=== PATIENT | female | born 1955 | race Caucasian/White ===

== ENCOUNTER → 2017-08-27 16:15 | Outpatient (CLI) | payer OTHER, SELFPAY ==
[2017-08-27 17:26] LABS: Add Manual Diff / Slide Review NO; Basophils Percent Auto 1.2 % (0-2); Hematocrit 41.4 % (36-46); Hemoglobin 14.2 g/dL (12.0-16.0); Mean Corpuscular HGB Conc 34.4 % (30-36); Mean Corpuscular Hemoglobin 30.3 PG (26-34); Monocytes Percent Auto 8.4 % (3-14); Neutrophils Absolute Auto 3200 /uL (3000-5900); Neutrophils Percent Auto 62.4 % (50-75); Platelet Count 264 X10^3/uL (150-400); Red Cell Distribution Width 13.2 % (11.6-14.8); White Blood Cell Count 5.2 X10^3/uL (4.5-11.0)
[2017-08-27 17:47] LABS: HEMOLYSIS < 15 (0-50); Iron 65 ug/dL (37-170)
[2017-08-27 17:58] LABS: Percent Iron Saturation 19 % (15-50); Total Iron Binding Capacity 339 ug/dL (265-497); Transferrin 285 mg/dL (206-381)
== END ==
PROVIDERS: Family Provider Family Medicine; PCP Family Medicine; Visit Provider Surgery
DX: D64.9 Anemia, unspecified (principal)
CPT/HCPCS: 36415; 83540; 83550; 85025

== ENCOUNTER 2017-09-12 17:19 | Emergency (ER) | payer OTHER, SELFPAY ==
[2017-09-12 17:25] VITALS: BP 182/86; PULSE 82; RESP 14; TEMP 36.4; O2SAT 100; BMI 29.8
--- NOTE | 2017-09-12 17:28 | DI.RAD.S_ITS ---
PROCEDURE: XR CHEST 1V INDICATIONS: chest pain TECHNIQUE: One view of the chest was acquired. COMPARISON: None. FINDINGS: Surgical changes and devices: None. Lungs and pleura: No pleural effusions or pneumothorax. Lungs are clear. Mediastinum: Mediastinal contours appear normal. Heart size is normal. Bones and chest wall: No suspicious bony lesions. Overlying soft tissues appear unremarkable. IMPRESSION: No acute cardiopulmonary pathology. Dictated by: Ousmane Shelton M.D. on 09/12/2017 at 17:41 Approved by: Ousmane Shelton M.D. on 09/12/2017 at 17:42
[2017-09-12 17:43] LABS: Add Manual Diff / Slide Review NO; Eosinophils Percent Auto 1.8 % (2-4); Hematocrit 42.3 % (36-46); Hemoglobin 14.3 g/dL (12.0-16.0); Lymphocytes Percent Auto 23.4 % (25-40); Mean Corpuscular HGB Conc 33.8 % (30-36); Mean Corpuscular Hemoglobin 29.9 PG (26-34); Mean Corpuscular Volume 88.3 fL (80-100); Monocytes Percent Auto 7.8 % (3-14); Neutrophils Absolute Auto 4100 /uL (3000-5900); Platelet Count 276 X10^3/uL (150-400); Red Blood Cell Count 4.79 X10^6/uL (4.0-5.2); Red Cell Distribution Width 12.9 % (11.6-14.8); White Blood Cell Count 6.3 X10^3/uL (4.5-11.0)
[2017-09-12] MEDS: SODIUM CHLORIDE 0.9% 1,000 ML 150 ML IV (17:43)
[2017-09-12] MEDS: ASPIRIN 81 MG TAB 324 MG PO (17:43)
--- NOTE | 2017-09-12 18:00 | ED_ITS ---
HPI - Chest Pain General Chief Complaint: Chest Pain Stated Complaint: EARLIER HAD CP, NAUSEA, DIZZINESS Time Seen by Provider: 09/12/17 17:41 Source: patient Mode of arrival: ambulatory Limitations: no limitations History of Present Illness HPI narrative: Patient states she was at work and had just eaten lunch, when she began to have a pain in her substernal area. Patient states that the pain escalated and that she felt nauseated and faint. She states the pain went on for about 10 min, after which she finally told a co-worker was going on and the prop worker called EMS. Patient states that by the time the medics got there the pain had totally resolved and she was feeling fine. Patient stayed at work for the rest of the afternoon, during which she had no further symptoms and states she feels fine now. However, she states she spoke with her sister, who is a nurse, and her sister told her she should come to the emergency department and get checked out. Patient estimates the pain occurred around 13 30 this afternoon. Patient denies any history of cardiac issues. She has no history of diabetes, hypertension, hyperlipidemia, or any sort of heart problems. She states that her family members have not had any coronary artery disease or strokes. Patient has been tobacco free since the early . complaint: chest pain Onset (ago): hour(s) (4.5) Duration: constant (For10 min, now resolved) Onset: during rest and after eating Pain location: substernal Severity: moderate Quality: tightness and sharp Pain radiation: none Relieving factors: nothing Exacerbating factors: nothing Context: other (No recent illness, recent surgery, immobilization, travel, trauma, new meds, or history of DVT/PE.) Associated symptoms: nausea and other (No diaphoresis, dyspnea, syncope, palpitations, fever, cough, or leg swelling.) Treatments prior to arrival chest pain: none Related Data Home Medications Medication Instructions Recorded Confirmed sennosides [senna] OR Q DAY PRN #0 02/01/17 08/27/17 ferrous gluconate 270 mg (27 mg 270 mg PO DAILY tab 08/27/17 08/27/17 iron) tablet Previous Rx's Medication Instructions Recorded estradiol 0.075 mg/24 hr 0.075 mg TOPICAL SEE INSTRUCTIONS 09/10/17 semiweekly transdermal patch #8 patch Allergies Allergy/AdvReac Type Severity Reaction Status Date / Time naproxen [NAPROXEN] Allergy Unknown Verified 09/12/17 17:25 Review of Systems Review of Systems All systems reviewed & are unremarkable except as noted in HPI and below Constitutional Denies chills, Denies fever(s), Denies lethargy and Denies weakness Eyes Denies change in vision, Denies eye discharge, Denies irritation and Denies loss of vision ENT Ears, Nose, Mouth, and Throat: Denies change in voice, Denies neck pain and Denies sore throat Cardiovascular Reports as per HPI, Reports system reviewed and no additional complaints, except as docu, Reports chest pain, Denies irregular heart rhythm, Denies lightheadedness, Denies palpitations, Denies dyspnea, Denies dyspnea on exertion and Denies orthopnea Respiratory Denies cough, Denies dyspnea, Denies dyspnea on exertion and Denies wheezing Gastrointestinal Gastrointestinal: Denies abdominal pain, Denies change in bowel habits, Denies diarrhea, Reports nausea and Denies vomiting Genitourinary Denies hematuria, Denies flank pain, Denies urinary incontinence and Denies urinary urgency Musculoskeletal Denies neck pain Integumentary/Breasts Denies pruritus, Denies erythema, Denies rash and Denies wounds Neurologic Denies confusion, Denies loss of vision and Denies weakness Psychiatric Denies anxiety, Denies confusion, Denies depression, Denies homicidal ideation and Denies suicidal ideation Endocrine Denies palpitations Hematologic/Lymphatic Denies easy bruising Allergic/Immunologic Denies wheezing [facility] Social History Smoking Status: Never smoker substance use type: does not use Exam Initial Vital Signs Initial Vital Signs: Vital Signs Temperature 97.5 F L 09/12/17 17:25 Pulse Rate 82 09/12/17 17:25 Respiratory Rate 14 09/12/17 17:25 Blood Pressure 182/86 H 09/12/17 17:25 Pulse Oximetry 100 09/12/17 17:25 Const General: cooperative and well developed Nutritional Appearance: well nourished Orientation: alert, awake, oriented x3 and not confused HENWI Head: normocephalic and atraumatic Ears: external ears normal and TM's normal bilaterally Nose: external nose normal and No nasal discharge Face and sinus: sinuses nontender, face symmetric, no sinus tenderness and No dry mucous membranes Mouth: oral mucosae normal and moist mucous membranes Teeth and gingiva: dentition normal Throat: tonsils normal and uvula midline Eyes General: appearance normal, both eyes and all related structures Eyelids: eyelids normal Conjunctivae: conjunctivae normal Sclera: sclerae normal Pupils: PERRL EOM: EOM intact bilaterally Neck Neck: normal visual inspection, trachea midline, No lymphadenopathy, No midline deformity and No JVD Lymphatic: No lymphedema Chest Chest: normal inspection of the chest Resp Effort & Inspection: normal respiratory effort, able to speak in complete sentences, no respiratory distress and no use of accessory muscles Auscultation: clear to auscultation bilaterally, no rales, no rhonchi and no wheezes Cardio Rate: regular rate Rhythm: regular rhythm Heart Sounds: no click, no gallops, no murmurs and no rubs Pulses: normal peripheral pulses GI Inspection: non-distended Palpation: soft, no hepatosplenomegaly, No guarding, No pulsatile mass and No tender Auscultation: normal bowel sounds Back/Spine/Pelvis Back: No CVA tenderness Cervical Spine: cervical ROM normal and No pain with cervical ROM Thoracic/Lumbar Spine: thoracic and lumbar spine normal to inspection Skin General: no rashes or lesions noted, No jaundice and No petechiae Neuro General: alert, oriented x3, gait normal and no focal motor deficits Speech: speech normal Extrem General: full ROM, no clubbing, cyanosis or edema, no pedal edema and no calf tenderness Psych Appearance: well kempt Mental Status: mental status grossly normal Attitude: cooperative Thought Content: normal and suicidality Judgment: judgment good Course Hospital Course: Patient remained stable throughout her stay in the emergency department. Additional Information: Patient's labs and EKG were unremarkable. I felt the patient most likely did not have a cardiac source of her symptoms. However, we have discussed the need for follow-up, as well as the usual indications for return to the emergency department. PROCEDURE: XR CHEST 1V INDICATIONS: chest pain TECHNIQUE: One view of the chest was acquired. COMPARISON: None. FINDINGS: Surgical changes and devices: None. Lungs and pleura: No pleural effusions or pneumothorax. Lungs are clear. Mediastinum: Mediastinal contours appear normal. Heart size is normal. Bones and chest wall: No suspicious bony lesions. Overlying soft tissues appear unremarkable. IMPRESSION: No acute cardiopulmonary pathology. Dictated by: Ousmane Shelton M.D. on 09/12/2017 at 17:41 Approved by: Ousmane Shelton M.D. on 09/12/2017 at 17:42 EKG interpretation as follows: Date and time September 12, 2017 at 5:24 p.m.. Regular ventricular rhythm with a rate of 75 beats per minute KS Interval 155 millisecond QRS duration 72 milliseconds QTC interval 400 millisecond Normal axis No ST or T-wave abnormalities Interpretation: Normal sinus rhythm, normal EKG Orders Ordered: Discontinued Medications Aspirin (Aspirin Chew) 324 mg PO NOW ONE Stop: 09/12/17 17:29 Last Admin: 09/12/17 17:43 Dose: 324 mg Sodium Chloride (Normal Saline 0.9%) 1,000 mls @ 150 mls/hr IV CONT ANDREA Last Admin: 09/12/17 17:43 Dose: 150 mls/hr Vital Signs - 8 hr 09/12/17 17:25 Temperature 97.5 F L Pulse Rate 82 Respiratory Rate 14 Blood Pressure 182/86 H Pulse Oximetry 100 MDM - Chest Pain Differential Diagnosis Likely stable angina, atypical chest pain and chest pain; Unlikely st elevation myocardial infarction Medical Records Data Attestation: I reviewed the patient's medical records. Lab Data Result diagrams: 09/12/17 17:30 09/12/17 17:30 Lab Results 09/12/17 09/12/17 Range/Units 17:30 17:30 WBC 6.3 (4.5-11.0) X10^3/uL RBC 4.79 (4.0-5.2) X10^6/uL Hgb 14.3 (12.0-16.0) g/dL Hct 42.3 (36-46) % MCV 88.3 (80-100) fL MCH 29.9 (26-34) PG MCHC 33.8 (30-36) % RDW 12.9 (11.6-14.8) % Plt Count 276 (150-400) X10^3/uL Neut % (Auto) 66.0 (50-75) % Lymph % (Auto) 23.4 L (25-40) % [place] % (Auto) 7.8 (3-14) % Eos % (Auto) 1.8 L (2-4) % Baso % (Auto) 1.0 (0-2) % Neut # (Auto) 4100 (7391-1122) /uL Sodium 140 (137-145) mmol/L Potassium 4.1 (3.4-5.1) mmol/L Chloride 104 (98-107) mmol/L Carbon Dioxide 26 (22-32) mmol/L BUN 12 (7-17) mg/dL Creatinine 0.60 (0.52-1.04) mg/dL Estimated GFR > 60.0 (>60) mL/min BUN/Creatinine Ratio 20.0 (6-22) Glucose 95 (80-110) mg/dL Calcium 9.6 (8.4-10.2) mg/dL Total Bilirubin 0.7 (0.2-1.3) mg/dL AST 31 (14-36) IU/L ALT 35 (9-52) IU/L Alkaline Phosphatase 74 (38-126) U/L Total Creatine Kinase 54 (30-135) U/L Troponin I < 0.012 (0.01-0.034) ng/mL Total Protein 7.3 (6.3-8.2) g/dL Albumin 4.3 (3.5-5.0) g/dL Globulin 3.0 (1.7-4.1) g/dL Albumin/Globulin Ratio 1.4 (1.0-2.8) Lipase 45 (23-300) U/L Discharge Plan Departure Patient Disposition: Home, Self-Care Clinical Impression: Chest pain Discharge Date/Time: 09/12/17 19:14 Interventions: ED Discharge Assessment Last Done: 09/12/17 19:16 Instructions: DI for Chest Pain Activity Restrictions/Additional Instructions: All of your tests look good. Prescriptions: No Action sennosides [senna] 8.6 mg Tablet OR Q DAY PRNQty: 0 RF: 0 estradiol [Vivelle-Dot] 0.075 mg/24 hr patch semiweekly 0.075 mg Topical SEE INSTRUCTIONS Qty: 8 RF: 2 ferrous gluconate 270 mg (27 mg iron) tablet 270 mg PO DAILY RF: 0 Referrals: Sha Myers MD [Primary Care Provider] - (Please follow up with your doctor on Sunday, as planned.)
[2017-09-12 18:31] LABS: Alanine Aminotransferase 35 IU/L (9-52); Albumin 4.3 g/dL (3.5-5.0); Albumin Globulin Ratio 1.4 (1.0-2.8); Alkaline Phosphatase 74 U/L (38-126); Aspartate Aminotransferase 31 IU/L (14-36); Bilirubin Total 0.7 mg/dL (0.2-1.3); Blood Urea Nitrogen 12 mg/dL (7-17); Calcium 9.6 mg/dL (8.4-10.2); Carbon Dioxide 26 mmol/L (22-32); Chloride 104 mmol/L (98-107); Creatine Kinase 54 U/L (30-135); Estimated Glomerular Filt Rate > 60.0 mL/min (>60); Glucose 95 mg/dL (80-110); HEMOLYSIS 15 (0-50); Lipase 45 U/L (23-300); Potassium 4.1 mmol/L (3.4-5.1); Sodium 140 mmol/L (137-145); Total Protein 7.3 g/dL (6.3-8.2)
[2017-09-12 18:43] LABS: Troponin I < 0.012 ng/mL (0.01-0.034)
[2017-09-12 19:16] VITALS: BP 128/72; PULSE 69; RESP 16; O2SAT 99
== END 2017-09-12 19:14 | disposition home or self-care (01) ==
PROVIDERS: Emergency Provider Emergency Medicine; Family Provider Family Medicine; PCP Family Medicine
DX: R07.9 Chest pain, unspecified (principal)
CPT/HCPCS: 36591; 71045; 80053; 82550; 82553; 83690; 84484; 85025; 93005; 93010; 93041; 99283; 99284

== ENCOUNTER → 2018-05-10 17:42 | Outpatient (CLI) | payer OTHER, SELFPAY ==
[2018-05-10 18:08] LABS: Influenza A and B by PCR Rapid Negative (Negative)
== END ==
PROVIDERS: Family Provider Family Medicine; PCP Family Medicine; Visit Provider Physician Assistant
DX: R68.89 Other general symptoms and signs (principal)
CPT/HCPCS: 87400

== ENCOUNTER → 2018-11-07 15:23 | Outpatient (CLI) | payer OTHER, SELFPAY ==
--- NOTE | 2018-11-07 | DI.RAD.S_ITS ---
PROCEDURE: XR KNEE LT 3V INDICATIONS: KNEE PAIN, LEFT TECHNIQUE: 4 views of the knee were acquired. COMPARISON: CR, XR KNEE BILATERAL STANDING UP, 05/06/2015, 9:33. FINDINGS: Bones: No fractures or dislocations. No suspicious bony lesions. Mild tricompartmental knee joint degeneration. Soft tissues: Small joint effusion. No suspicious soft tissue calcifications. IMPRESSION: Mild degenerative joint disease and small knee joint effusion. Dictated by: Nathalia Gonzalez M.D. on 11/07/2018 at 17:40 Approved by: Nathalia Gonzalez M.D. on 11/07/2018 at 17:41
== END ==
PROVIDERS: PCP Family Medicine; Visit Provider Family Medicine
DX: M25.562 Pain in left knee (principal); M17.12 Unilateral primary osteoarthritis, left knee; M25.462 Effusion, left knee
CPT/HCPCS: 73562

== ENCOUNTER 2019-01-11 00:58 | Observation (INO) | payer OTHER, SELFPAY ==
[2019-01-11] VITALS (20 sets, daily range): BP systolic 119–197; BP diastolic 66–105; PULSE 65–93; RESP 9–18; TEMP 36.2–37.2; O2SAT 92–100; BMI 30.4
--- NOTE | 2019-01-11 | PATH_ITS ---
[facility] Accession Number: [id number] . 01 Material submitted: . gallbladder - GALLBLADDER . 01 Clinical history: . PAIN MID ABDOMEN SINCE YESTERDAY . 02 Diagnosis: Gallbladder, Cholecystectomy: Chronic cholecystitis with cholelithiasis. Negative for dysplasia and malignancy. MRV 01/15/2019 1113 Local . 02 Electronically signed: . Maria Dean MD, Pathologist NPI- [id number] . 01 Gross description: . Received in formalin, labeled gallbladder, is an opened gallbladder (length-8.4 cm, diameter-3.0 cm) with styles-pink smooth shiny serosa and a patent cystic duct. No lymph nodes are identified. The lumen contains de la cruz-yellow friable calculi fragments (2.5 x 2.5 x 1.7 cm in aggregate). The mucosa is pale de la cruz, smooth and flat. The wall is up to 0.1 cm thick. No nodules, masses or lesions are identified. Section code: (A1) cystic duct resection margin and two serial sections from the body; (A2) two longitudinal sections from the fundus. ([id number]) /MRV 01/14/2019 1159 Local . 02 Pathologist provided ICD-10: K80.60 . 02 CPT . 938357 Performed at: 01 [facility] [address] [place] [address], [place], [place] [id number] MD Robby Lester MD Phone: [phone] Performed at: 02 [facility] [address] [place], [place] [id number] MD Maria Dean MD Phone: [phone]
--- NOTE | 2019-01-11 01:35 | DI.US.S_ITS ---
PROCEDURE: US ABDOMEN COMPLETE INDICATIONS: UPPER ABDOMINAL PAIN TECHNIQUE: Real-time scanning was performed of the abdominal and retroperitoneal organs, with image documentation. COMPARISON: [facility], US, ABDOMEN COMPLETE, 05/10/2012, 7:54. FINDINGS: Liver: Liver is normal in size and slightly increased in echogenicity with coarse sonographic echotexture compatible with fatty infiltration. Gallbladder: There is a non-mobile gallstone measuring up to 3.1 cm which appears impacted in the gallbladder neck. Gallbladder wall is at the upper limits of normal measuring 0.2-0.3 cm. No pericholecystic fluid. Patient was reportedly tender during examination. Biliary ducts: Intrahepatic bile ducts are non-dilated. Extrahepatic bile duct caliber measures 5-6 mm. Normal is 6-7 mm or less in diameter, or 10 mm or less post-cholecystectomy. Pancreas: Visualized portions of the pancreas are sonographically normal. Spleen: Spleen is normal in size and homogeneous in echotexture. Kidneys: Right kidney measures 11.8 cm long; left kidney measures 10.4 cm long. No hydronephrosis. Aorta: Visualized aorta is normal in caliber at less than 3 cm. The mid and distal aorta are not well-seen due to bowel gas. Iliacs: Proximal common iliac arteries are not well seen due to bowel gas. IVC: Intrahepatic inferior vena cava is patent. Miscellaneous: No free abdominal fluid. IMPRESSION: 1. Cholelithiasis with an impacted stone in the gallbladder neck. Given borderline gallbladder wall thickening and patient tenderness during the examination, early or developing cholecystitis cannot be excluded. Concordant with preliminary interpretation. Dictated by: Robby Sousa M.D. on 01/11/2019 at 9:12 Approved by: Robby Sousa M.D. on 01/11/2019 at 9:15
[2019-01-11] MEDS: ONDANSETRON 4 MG/2 ML INJ IV (01:39)
[2019-01-11] MEDS: SODIUM CHLORIDE 0.9% 1,000 ML 150 ML IV (01:39)
[2019-01-11 01:40] LABS: Add Manual Diff / Slide Review NO; Alanine Aminotransferase 18 IU/L (<35); Albumin 4.3 g/dL (3.5-5.0); Albumin Globulin Ratio 1.5 (1.0-2.8); Alkaline Phosphatase 78 U/L (38-126); Aspartate Aminotransferase 23 IU/L (14-36); BUN Creatinine Ratio 16.7 (6-22); Basophils Absolute Auto 300 /uL (0-100); Basophils Percent Auto 3.8 % (0-2); Bilirubin Total 0.9 mg/dL (0.2-1.3); Blood Urea Nitrogen 10 mg/dL (7-17); Calcium 9.6 mg/dL (8.4-10.2); Carbon Dioxide 25 mmol/L (22-32); Chloride 103 mmol/L (98-107); Eosinophils Absolute Auto 100 /uL (0-450); Eosinophils Percent Auto 1.1 % (2-4); Estimated Glomerular Filt Rate > 60.0 mL/min (>60); Globulin 2.9 g/dL (1.7-4.1); Glucose 113 mg/dL (80-110); HEMOLYSIS < 15 (0-50); Hematocrit 43.8 % (36-46); Lipase 37 U/L (23-300); Lymphocytes Absolute Auto 1100 /uL (1100-4500); Lymphocytes Percent Auto 13.3 % (25-40); Mean Corpuscular HGB Conc 34.3 % (30-36); Mean Corpuscular Hemoglobin 29.6 PG (26-34); Mean Corpuscular Volume 86.5 fL (80-100); Monocytes Absolute Auto 500 /uL (0-900); Monocytes Percent Auto 6.6 % (3-14); Neutrophils Absolute Auto 6100 /uL (1500-7000); Neutrophils Percent Auto 75.2 % (50-75); Platelet Count 294 X10^3/uL (150-400); Red Blood Cell Count 5.07 X10^6/uL (4.0-5.2); Red Cell Distribution Width 12.9 % (11.6-14.8); Sodium 136 mmol/L (137-145); Total Protein 7.2 g/dL (6.3-8.2); White Blood Cell Count 8.1 X10^3/uL (4.5-11.0)
[2019-01-11 01:52] LABS: Troponin I < 0.012 ng/mL (0.01-0.034)
[2019-01-11] MEDS: KETOROLAC 60 MG/2 ML VIAL 15 MG IV (01:54)
--- NOTE | 2019-01-11 03:10 | ED.ABDPAIN ---
HPI - Abdominal Pain General Chief Complaint: Abdominal Pain Stated Complaint: pain mid abdomen since yesterday Time Seen by Provider: 01/11/19 03:10 Source: patient Mode of arrival: Ambulatory Limitations: no limitations History of Present Illness HPI narrative: This is a 63-year-old female comes to the emergency department with complaint of abdominal pain/epigastric pain. Patient states pain started night into Sunday morning and has become increasingly worse. She states it is pretty constant but sort of waxes and wanes in intensity. She has had some symptoms on off in the past but not to this level of intensity. She states it does not radiate anywhere else. She denies any fevers or chills. She has had nausea but no vomiting. She has had regular bowel movements. She denies any frequency, dysuria urgency. She denies any flank pain. She denies any black or bloody stool. Patient states she has a history significant for intestinal resection at age 4 days, she did have small bowel obstructions in the 80s and did have resection for this. She has had appendectomy, hysterectomy and tubal ligation. She states she uses a estrogen patch and denies any other medications. She denies tobacco, alcohol or illicit. Related Data Previous Rx's Medication Instructions Recorded estradiol 0.075 mg/24 hr 0.075 mg TOPICAL 2XW #8 patch 03/06/18 semiweekly transdermal patch Allergies Allergy/AdvReac Type Severity Reaction Status Date / Time naproxen [NAPROXEN] AdvReac Unknown Vomiting Verified 01/11/19 01:04 Review of Systems Review of Systems ROS Unobtainable: All systems reviewed & are unremarkable except as noted in HPI and below Patient History Medical History Iron deficiency anemia (Acute) Small bowel obstruction due to adhesions (Acute) Surgical History History of bowel resection History of colonoscopy (Acute) History of esophagogastroduodenoscopy (EGD) (Acute) Status post appendectomy Status post delivery Status post eye surgery Status post hysterectomy Family History Father Emphysema Mother Emphysema Social History Smoking Status: Never smoker substance use type: does not use Smoking Status: Never smoker Substance Use Type: does not use Exam Narrative Exam Narrative: GENERAL: Alert and oriented x three, obese, well-appearing female in moderate distress. HEENT: Head normocephalic, atraumatic, EOMI, pupils reactive, face symmetric, moist mucous membranes NECK: Supple, full range of motion CARDIOVASCULAR: Regular rate and rhythm without murmurs, rubs or gallops. RESPIRATORY: Breath sounds equal bilaterally, no wheezes rales or rhonchi. ABDOMEN: Soft, positive epigastric tenderness and just to the right of the epigastric region. Normoactive bowel sounds all 4 quadrants. No guarding or rebound, rigidity, no mass, no bruit or pulsatile mass. : No CVA tenderness EXTREMITIES: Normal range of motion, no clubbing or edema. Neurovascularly intact NEUROLOGICAL: Cranial nerves II through XII grossly intact. Moving all extremities SKIN: Warm, dry, no petechiae, no rashes or lesions. Initial Vital Signs Initial Vital Signs: Vital Signs Temperature 97.3 F L 01/11/19 01:04 Pulse Rate 89 01/11/19 01:04 Respiratory Rate 18 01/11/19 01:04 Blood Pressure 197/99 H 01/11/19 01:04 Pulse Oximetry 99 01/11/19 01:04 Course Orders Ordered: ED Orders 01/11/19 01:15 Complete Blood Count AUTO DIFF Stat Comprehensive Metabolic Panel Stat Lipase Stat Troponin I Stat 01/11/19 01:29 EKG-12 Lead Stat 01/11/19 01:35 US abdomen complete Stat Acetaminophen (Tylenol) 650 mg PO Q6HR PRN PRN Reason: Fever/Mild Pain (1-3) Lactated Ringer's (Lactated Ringers) 1,000 mls @ 100 mls/hr IV CONT [facility] Last Admin: 01/11/19 05:12 Dose: 100 mls/hr Documented by: MARTY Piperacillin/Tazobactam/Dextrose (Zosyn) 3.375 gm in 50 mls @ 100 mls/hr IV Q8H [facility] Last Admin: 01/11/19 05:13 Dose: 100 mls/hr Documented by: MARTY Morphine Sulfate (Morphine) 2 mg IV Q2HR PRN PRN Reason: Pain, Moderate (4-6) Morphine Sulfate (Morphine) 4 mg IV Q4HR PRN PRN Reason: Pain, Severe (7-10) Last Admin: 01/11/19 05:13 Dose: 4 mg Documented by: MARTY Ondansetron HCl (Zofran) 4 mg IV Q6HR PRN PRN Reason: Nausea And Vomiting Discontinued Medications Sodium Chloride (Normal Saline 0.9%) 1,000 mls @ 150 mls/hr IV CONT ANDREA Last Infusion: 01/11/19 04:03 Dose: 0 mls/hr Documented by: Admin: 01/11/19 01:39 Dose: 150 mls/hr Documented by: SUSSY Ketorolac Tromethamine (Toradol) 15 mg IV NOW ONE Stop: 01/11/19 01:48 Last Admin: 01/11/19 01:54 Dose: 15 mg Documented by: SUSSY Morphine Sulfate (Morphine) 4 mg IV NOW ONE Stop: 01/11/19 03:11 Last Admin: 01/11/19 03:18 Dose: 4 mg Documented by: NAOMI Ondansetron HCl (Zofran) 4 mg IV NOW ONE Stop: 01/11/19 01:29 Last Admin: 01/11/19 01:39 Dose: 4 mg Documented by: SUSSY Vital Signs Vital signs: Vital Signs - 8 hr 01/11/19 01:04 01/11/19 02:00 01/11/19 03:21 Temperature 97.3 F L Pulse Rate 89 73 80 Respiratory Rate 18 16 16 Blood Pressure 197/99 H Blood Pressure [Right Arm] 176/91 H 160/79 H Pulse Oximetry 99 100 98 MDM - Abdominal Pain Lab Data Attestation: I reviewed the patient's lab results. Result diagrams: 01/11/19 01:15 01/11/19 01:15 Labs: Lab Results 01/11/19 01/11/19 01/11/19 Range/Units 01:15 01:15 01:15 WBC 8.1 (4.5-11.0) X10^3/uL RBC 5.07 (4.0-5.2) X10^6/uL Hgb 15.0 (12.0-16.0) g/dL Hct 43.8 (36-46) % MCV 86.5 (80-100) fL MCH 29.6 (26-34) PG MCHC 34.3 (30-36) % RDW 12.9 (11.6-14.8) % Plt Count 294 (150-400) X10^3/uL Neut % (Auto) 75.2 H (50-75) % Lymph % (Auto) 13.3 L (25-40) % [place] % (Auto) 6.6 (3-14) % Eos % (Auto) 1.1 L (2-4) % Baso % (Auto) 3.8 H (0-2) % Neut # (Auto) 6100 (3947-0592) /uL Lymph # (Auto) 1100 (0631-6075) /uL [place] # (Auto) 500 (0-900) /uL Eos # (Auto) 100 (0-450) /uL Baso # (Auto) 300 H (0-100) /uL Sodium 136 L (137-145) mmol/L Potassium 4.0 (3.4-5.1) mmol/L Chloride 103 (98-107) mmol/L Carbon Dioxide 25 (22-32) mmol/L BUN 10 (7-17) mg/dL Creatinine 0.60 (0.52-1.04) mg/dL Estimated GFR > 60.0 (>60) mL/min BUN/Creatinine Ratio 16.7 (6-22) Glucose 113 H (80-110) mg/dL Calcium 9.6 (8.4-10.2) mg/dL Total Bilirubin 0.9 (0.2-1.3) mg/dL AST 23 (14-36) IU/L ALT 18 (<35) IU/L Alkaline Phosphatase 78 (38-126) U/L Troponin I < 0.012 (0.01-0.034) ng/mL Total Protein 7.2 (6.3-8.2) g/dL Albumin 4.3 (3.5-5.0) g/dL Globulin 2.9 (1.7-4.1) g/dL Albumin/Globulin Ratio 1.5 (1.0-2.8) Lipase 37 (23-300) U/L Point of care testing: Urine Dip Bedside Urine Glucose Negative Bedside Urine Bilirubin - Negative Bedside Urine Ketone +/- 5 Urine Specific [place] 1.010 Bedside Urine Occult Blood - Negative Bedside Urine pH 7.0 Bedside Urine Protein - Negative Bedside Urine Urobilinogen - Negative Bedside Urine Nitrite - Negative Bedside Urine Leukocytes - Negative Esterase Imaging Data US - abdomen: Radiologist's impression: Fatty liver infiltration. No mass. Patient has gallbladder containing cholelithiasis, gallbladder wall is not thickened measuring 2.3 mm and is not edematous. There is positive sonographic Fletcher sign. No pericholecystic fluid. No common bile duct dilation. Pancreas is unremarkable as visualized. IVC is unremarkable. No aortic aneurysm. Spleen unremarkable. ECG Data Attestation: I personally reviewed and interpreted this ECG as follows: Interpretation: Sinus rhythm rate of 90, P are 145 QRS is 77 QTC of 410. Q-wave in lead 3. No ST changes appreciated. MDM Narrative Medical decision making narrative: Patient comes in with large gallstone that by prelim report from ultrasound is impacted in the neck. Patient is tender right upper quadrant with no major lab abnormalities. She does not appear to have an acute infection at this time, spoke with General surgery and Dr. Toribio accepts for plan for OR today. Patient had some improvement with Toradol but pain returned, she was given a dose of morphine with improvement. Discharge Plan Departure Patient Disposition: Admitted as Observation Clinical Impression: Cholelithiasis Discharge Date/Time: 01/11/19 04:14 Admit Date/Time: 01/11/19 03:31 Admit Provider: Gina Toribio
[2019-01-11] MEDS: MORPHINE 4 MG/ML INJ IV ×3 (03:18→09:14)
--- NOTE | 2019-01-11 04:23 | PM.HP.1 ---
History of Present Illness History of Present Illness Date Patient Seen: 01/11/19 Time Patient Seen: 04:23 Chief complaint: pain mid abdomen since yesterday Narrative: This is a 63-year-old woman with history of gallstones,multiple abdominal operations including bowel resection at 5-day-old through a right paramedian incision, laparotomy forsmall-bowel obstruction, appendectomy,hysterectomy, tubal ligation which were all done open. her last abdominal surgery was in 2009.The patient came in to the ER overnight with complaint of colickyepigastric and right upper quadrant pain since night into Sunday morning which has become increasingly worse. She has had some symptoms on off in the past but not to this level of intensity. She denies any fevers or chills. She has had nausea but no vomiting. She has had regular bowel movements. She denies any frequency, dysuria urgency. She denies any flank pain. She denies any black or bloody stool. She denies any jaundice. Labs in the ER were unremarkable. RUQ US showed a large gall stone without pericholecystitic fluid or gall bladder wall thickening. She was admitted due to intractable pain. She currently is having persistent right upper quadrant pain with intermittent spikes of severe pain. ROS: All systems reviewed & are unremarkable except as noted in HPI and below PE: GENERAL: Alert and oriented x three, obese, well-appearing female in mild to moderate distress. HEENT: Head normocephalic, atraumatic, EOMI, pupils reactive, face symmetric, moist mucous membranes NECK: Supple, full range of motion CARDIOVASCULAR: Regular rate and rhythm, no lower extremity edema RESPIRATORY: non tachypneic, breathing comfortably on room air ABDOMEN: Soft, mildly distended,Moderate epigastric and right upper quadrant tenderness to palpation, multiple healed surgical incisional scars including a right paramedian incision and multiple lower abdominal incisions. : No CVA tenderness EXTREMITIES: Normal range of motion, no clubbing or edema. Neurovascularly intact NEUROLOGICAL: Cranial nerves II through XII grossly intact. Moving all extremities SKIN: Warm, dry, no petechiae, no rashes or lesions. Patient History Medical History Iron deficiency anemia (Acute) Small bowel obstruction due to adhesions (Acute) Surgical History History of bowel resection History of colonoscopy (Acute) History of esophagogastroduodenoscopy (EGD) (Acute) Status post appendectomy Status post delivery Status post eye surgery Status post hysterectomy Family & Social History Family History Father Emphysema Mother Emphysema Safety & Behavioral: Feels Safe in Current Yes Environment Tobacco & Substance use: Smoking Status Never smoker Substance Use Type does not use Meds Home Medications and Allergies Home Medications Medication Instructions Recorded Confirmed Type estradiol 0.075 mg/24 hr 0.075 mg TOPICAL 2XW #8 patch 03/06/18 01/11/19 Rx semiweekly transdermal patch Allergies Allergy/AdvReac Type Severity Reaction Status Date / Time naproxen [NAPROXEN] AdvReac Unknown Vomiting Verified 01/11/19 01:04 Exam Vital Signs (past 8 hours): - 01/11/19 01:04 01/11/19 02:00 01/11/19 03:21 Temperature 97.3 F L Pulse Rate 89 73 80 Respiratory Rate 18 16 16 Blood Pressure 197/99 H Blood Pressure [Right Arm] 176/91 H 160/79 H Pulse Oximetry 99 100 98 01/11/19 04:05 Temperature Pulse Rate 74 Respiratory Rate 13 Blood Pressure Blood Pressure [Right Arm] 144/80 H Pulse Oximetry 95 Oxygen Delivery Method Room Air Objective Imaging US - abdomen: Radiologist's impression: US - abdomen: No mass. Gallbladder containing cholelithiasis, gallbladder wall is not thickened measuring 2.3 mm and is not edematous. There is positive sonographic Fletcher sign. No pericholecystic fluid. No common bile duct dilation. Pancreas is unremarkable as visualized. IVC is unremarkable. No aortic aneurysm. Labs Result Diagrams: 01/11/19 01:15 01/11/19 01:15 Labs: Laboratory Results - last 24 hr 01/11/19 01/11/19 01/11/19 01:15 01:15 01:15 WBC 8.1 RBC 5.07 Hgb 15.0 Hct 43.8 MCV 86.5 MCH 29.6 MCHC 34.3 RDW 12.9 Plt Count 294 Neut % (Auto) 75.2 H Lymph % (Auto) 13.3 L [place] % (Auto) 6.6 Eos % (Auto) 1.1 L Baso % (Auto) 3.8 H Neut # (Auto) 6100 Lymph # (Auto) 1100 [place] # (Auto) 500 Eos # (Auto) 100 Baso # (Auto) 300 H Sodium 136 L Potassium 4.0 Chloride 103 Carbon Dioxide 25 BUN 10 Creatinine 0.60 Estimated GFR > 60.0 BUN/Creatinine Ratio 16.7 Glucose 113 H Calcium 9.6 Total Bilirubin 0.9 AST 23 ALT 18 Alkaline Phosphatase 78 Troponin I < 0.012 Total Protein 7.2 Albumin 4.3 Globulin 2.9 Albumin/Globulin Ratio 1.5 Lipase 37 Assessment & Plan Assessment and plan (1) Cholelithiasis: Problem details: This is a 63-year-old woman with persistent pain from gallstones. She has had multiple abdominal operations, which will likely make it difficult to to perform a cholecystectomy laparoscopically. She currently does not have any pericholecystic fluid, leukocytosis, or gallbladder wall thickening to indicate cholecystitis. However, she is having persistent pain, so she would likely has a developing cholecystitis and will require her gallbladder to be removed during this hospital admission. Plan: NPO, IV fluids, IV pain meds, IV antiemetic IV Zosyn Hold DVT prophylaxis med Bilateral SCDs I will discuss her case with Dr. Lucas this morning, he is coming on at 8:00 a.m. and would be performing her cholecystectomy later today if that is ultimately what we decide to do Current visit: Yes Status: Acute Quality VTE Deep Vein Thrombosis/Pulmonary Embolism Present on Admission: No
--- NOTE | 2019-01-11 04:33 | PC.NURSE ---
Arrival to Unit Patient arrives to acute care alert and oriented via stretcher, able to walk to bathroom and bed without difficulty. 2 RN skin check completed. Patient complains of some abdominal discomfort, but denies need for any medication. Belongings at bedside, care is ongoing.
[2019-01-11] MEDS: LACTATED RINGERS 1,000 ML 100 ML IV (05:12)
[2019-01-11] MEDS: PIPERACILLIN-TAZO 3.375 GM/50 ML FROZ.PIGGY IV ×2 (05:13→13:11)
--- NOTE | 2019-01-11 09:27 | PC.NURSE ---
Addendum entered by Susan Diaz R.N. 01/11/19 13:11: 1300 dose of Zosyn taken down to PACU for them to administer. Addendum entered by Susan Diaz R.N. 01/11/19 12:47: Transported off floor to surgery via hospital bed, accompanied by RN from surgery. Addendum entered by Susan Diaz R.N. 01/11/19 11:32: C/O headache- medicated with 650 mg Tylenol w/ small sip of water for the same. Given ice pack for forehead and closed the blinds in the room. Patient denies any other needs at this time. Calls appropriately, light within reach. Original Note: Shift summary: Awake and alert, oriented X3. Reported 5/10 achy, crampy mid-abd/epigastric pain- medicated with 4 mg IV Morphine for the same. Denies N/V. BT+, hypoactive. Regarding flatus states I don't know, I haven't really been paying attention this morning. She states she does feel a bit bloated. Lungs CTA. HRR. Room air. Remains NPO. Given oral swabs and told her to let us know if she wants to brush teeth/swish, etc. IVF per orders, site in R AC WNL. Encouraged to make needs known. Call light and belongings within reach.
[2019-01-11] MEDS: ACETAMINOPHEN 325 MG TABLET 650 MG PO (11:26)
--- NOTE | 2019-01-11 12:12 | PM.PREOP ---
Pre-operative Note Interval Note History & Physical reviewed/Exam performed by Physician: Yes Changes to H&P: Yes H&P completed within 30 days and has changed as indicated here:: Morphine has controlled the patient's pain. She is not tender. I discussed operating on her. Discussed laparoscopic versus open procedure. Talked to her about placement of ports and that she may not have a typical placement due to the scars on her abdomen. Talked to her about the risks of bleeding, infection, hernia, bile leakage, injury to internal organs or ducts which would require major operation to repair, possibility of a cholangiogram, possibility of a postop ERCP. At this time I do not plan a cholangiogram since she has a normal bilirubin and liver function tests and has never been jaundiced. All questions were answered. She is happy to proceed.
--- NOTE | 2019-01-11 12:17 | CM.IDA ---
Initial DCP Assessment Note: Pt is a 63 yo female, resident of [place]. Here today w/abdomen pain and Dr Lucas taking her to the OR for wilder. PCP: Sha Myers Payer: [facility] Reviewed chart. Pt scheduled for the OR today for a wilder by Dr Lucas. Chart reviewed and no barriers to safe return home w/spouse identified at this time. [employer] team will plan to follow closely and assess further after abd surgery. P: DC expected home w/family via pov. Following. SARA Felton
--- NOTE | 2019-01-11 13:57 | SUR.OPER ---
Supine on padded OR bed, head on pillow, arms secured on padded arm boards at <90 degrees abduction, legs uncrossed, safety belt at thigh, tape over blanket over lower legs. Feet on padded footboard
[2019-01-11] MEDS: BUPIVACAINE 0.5% (PF) VIAL 30 ML INJ (14:09)
--- NOTE | 2019-01-11 15:12 | PM.OP.1 ---
Operative Date/Time/Diagnoses Date of procedure: 01/11/19 Time of procedure: 15:12 Pre-op diagnosis: Cholelithiasis cholecystitis chronic Post-op diagnosis: same Procedure & Clinicians Procedure: Laparoscopic cholecystectomy Same procedure as scheduled: Yes Indications: Upper abdominal pain and abnormal ultrasound Surgeon: Shant Lucas Click Yes if Unassisted: Yes Anesthesia Type: General Operative Notes Findings: Thickened gallbladder wall. Gallbladder filled with thick mucoid bilious material and a large stone. Closure Type: primary Specimen(s): other (Gallbladder) Prosthetic devices, grafts, tissues, transplants, or devices: None Estimated Blood Loss (mL): 10 Blood products transfused: none Procedure in detail: The patient was placed supine on the operating room table and underwent general endotracheal anesthesia. She was prepped and draped in the usual fashion. Because of prior scars an incision was made in the upper abdomen just to the right of midline and carried down under direct vision into the peritoneal cavity. Stay sutures of 0 Vicryl were placed in the fascia. A 12 mm cannula was inserted. The abdomen was insufflated. It turned out the right upper quadrant was fairly free of adhesions. There were adhesions to the midline and to the right lower abdomen. I placed 3 additional ports in such a manner that I would not go through any adhesions or disrupt them in any way. The gallbladder is identified as a thickened tensely distended structure. I attempted to aspirate it but only obtained very thick viscous fluid. The gallbladder was grasped and elevated. Dissection was begun near its and a ductal structure singular nature going directly the gallbladder was from surrounding structures. For clips were placed across it it was divided leaving 3 in the patient. Vascular structures immediately adjacent were handled in an identical fashion. The gallbladder was then dissected from its bed in the liver using cautery. It was detached placed in a bag and removed with some difficulty due to the large stone which had to be crushed. Ultimately however it was removed without spillage into the peritoneal cavity from the bag. The right upper quadrant irrigated and suctioned free of fluid. The was no ongoing bleeding. The ports were all removed. Stay sutures at the upper medial incision were closed by tying them along with adding a 2 0 PDS between the 2. The wounds were all irrigated and the skin was closed with interrupted 4 0 Vicryl subcuticular stitches and Steri-Strips. Dressings were applied and the patient was awakened extubated taken recovery area in good condition. Complications: none Post-operative Condition: stable Disposition: PACU
--- NOTE | 2019-01-11 16:02 | SUR.PHASEI ---
Report to ANA PAULA Kate in AC. Tolerated ice chips along with sips of water. Denies pain, no N/V to report. Puncture wounds x4 to abd are CDI. Pt transferred in stable condition.
--- NOTE | 2019-01-11 18:05 | PC.NURSE ---
PATIENT IS UP TO BATHROOM SBA URINATING WITHOUT DIFFICULTY, DENIES PAIN. TOLERATED GENERAL DIET WITHOUT NAUSEA.
[2019-01-11] MEDS: OXYCODONE/ACETAMINOPHEN 5/325 TABLET 2 TAB PO (21:07)
--- NOTE | 2019-01-12 00:21 | PC.NURSE ---
NOC Note Assumed care of patient. Lap site dressings CDI, patient denies pain at this time. SCDs at foot of bed but patient refuses use despite education, stating that they keep her from sleeping. Care is ongoing.
[2019-01-12 04:10] VITALS: BP 126/72; PULSE 74; RESP 18; TEMP 36.5; O2SAT 94
[2019-01-12] MEDS: OXYCODONE/ACETAMINOPHEN 5/325 TABLET 2 TAB PO ×2 (05:04→10:23)
--- NOTE | 2019-01-12 07:58 | PC.NURSE ---
Addendum entered by Susan Diaz R.N. 01/12/19 12:56: Discharge: IV dc'd intact and with good hemostasis. Reviewed all discharge instructions thoroughly with patient. Ok to remove band-aids tomorrow and shower, no hot tubs/swimming until cleared by MD. She will call MD's office tomorrow to schedule follow up. Sent with script for Vicodin. All personal belongings collected and sent with patient at discharge. Wheeled out to private vehicle by nursing staff. Original Note: Shift summary: Awake and alert, oriented X3. Reports feeling pretty good this morning. Rates abd tenderness 2/10, states pain well-managed with Percocet. 4 lap site band-aids C/D/I. Abd soft, tender. BT+, flatus+. Denies N/V. Lungs CTA. HRR. Voiding without issue. Able to make needs known and agrees to call for SBA OOB. Call light and belongings within reach.
[2019-01-12 08:00] VITALS: BP 116/65; PULSE 69; RESP 19; TEMP 36.8; O2SAT 96
[2019-01-12] MEDS: SODIUM CHLORIDE 0.9% FLUSH 10 ML IV (10:23)
--- NOTE | 2019-01-12 10:24 | P.DS_ITS ---
History of Present Illness History of Present Illness Date Patient Seen: 01/12/19 Time Patient Seen: 10:24 Chief complaint: pain mid abdomen since yesterday Narrative: Patient is woman admitted to observation with upper abdominal pain and abnormal ultrasound of the gallbladder. Her pain was incompletely controlled with medication and she also had nausea. Discharge Providers Provider Date of admission: 01/11/19 03:31 Discharge Date: 01/12/19 Primary care physician: Sha Myers MD Consults: 01/11/19 16:03 Consult to Discharge Planning Routine Comment: Discharge provider: Shant Lucas MD Summary Hospital Course Discharge Diagnosis: Acute and chronic cholecystitis with cholelithiasis Multiple prior abdominal operations including bowel resection, appendectomy, exploration for an obstruction. Hospital Course: Patient will on was taken to the operating room the afternoon after her late evening admission. Postoperatively she was kept in observation and she tolerated her operation well and was discharged eating a regular diet. She is to follow up in the office. Status at Discharge Cognitive/behavioral status at discharge: oriented Functional status at discharge: independent ambulation Overall status at discharge: patient is progressing back to baseline Exam Vital Signs (past 8 hours): - 01/12/19 04:10 01/12/19 08:00 Temperature 97.7 F 98.3 F Pulse Rate 74 69 Respiratory Rate 18 19 Blood Pressure 126/72 116/65 Pulse Oximetry 94 96 Oxygen Delivery Method Room Air Oxygen Flow Rate 0 Narrative Exam Narrative: Lungs are clear. Heart regular rate and rhythm without murmur gallop. Band-Aids intact and dry. No unusual tenderness. Objective Labs Result Diagrams: 01/11/19 01:15 01/11/19 01:15 Discharge Plan Discharge Plan Patient Disposition: Home Discharge orders & Medications Prescriptions: New hydrocodone-acetaminophen [[place]] 5-325 mg tablet 1 tab PO Q4H PRN (Reason: painful procedure) Qty: 10 RF: 0 Continued estradiol [[place]iv[place]-Dot] 0.075 mg/24 hr patch semiweekly 0.075 mg Topical 2XW Qty: 8 RF: 11 Follow up/Referrals: Sha Myers MD [Primary Care Provider] - Shant Lucas MD [Physician] - 2 Weeks (Please call my office and make an appointment to see me in about 10-14 days. If you need to reach a doctor after hours please call the office and listen to the entire message. At the end you will be connected with the page centrifugal operator. They will call the doctor on-call. Try to avoid use of the emergency room except for emergencies as your postoperative care is included in your operative care) Diet/Activity/Treatments Diet: Diet as Tolerated Activity: Do not lift over 10 lb or strain for the next 4 weeks. You may resume work when you feel up to it. Do not drive into her pain-free off medication. Skin/Wound/Dressing Care Report to your healthcare provider any signs of infection, such as:: chills, fever, increased pain, unusual drainage and unusual redness Dressing: You may remove the Band-Aids tomorrow and shower. Leave the tape under the Band-Aids fall off on its own. Visit Report/Discharge Packet Instructions: DI for Cholecystectomy, DI for Laparoscopy, [facility]: Wound Care Visit Report Forms: Patient Portal/API, Stroke Signs & Symptoms Discharge Data Primary Care Provider: Sha Myers Attending Provider: Gina Toribio Admit Date/Time: 01/11/19 03:31 Quality VTE Deep Vein Thrombosis/Pulmonary Embolism Present on Admission: No
[2019-01-12 11:07] VITALS: BP 129/72; PULSE 69; RESP 16; TEMP 37.1; O2SAT 96
== END 2019-01-12 12:59 | disposition home or self-care (01) ==
LOC: ED 03:29 → AC 03:31
PROVIDERS: Specialist; Admitting Provider Surgery; Emergency Provider Emergency Medicine; PCP Family Medicine; Visit Provider Surgery
PROC: 0FT44ZZ Resection of Gallbladder, Percutaneous Endoscopic Approach (ICD-10-PCS; CPT 47562; principal; 2019-01-11 12:30)
DX: K80.10 Calculus of gallbladder with chronic cholecystitis without obstruction (principal); R10.9 Unspecified abdominal pain; D50.9 Iron deficiency anemia, unspecified; K66.0 Peritoneal adhesions (postprocedural) (postinfection)
CPT/HCPCS: 47562; 36415; 76700; 80053; 81003; 83690; 84484; 85025; 93005; 96361; 96365; 96366; 96375; 96376; 99220; 99283; 99285; G0378; J1100; J1650; J1885; J2250; J2270; J2405; J2543; J2704; J3010

== ENCOUNTER → 2020-03-04 14:59 | Outpatient (CLI) | payer BC, SELFPAY ==
[2019-01-11 03:59] VITALS: BMI 30.4
[2020-03-04] MEDS: COVID-19 VACC #1, MRNA(MOD) 100 MCG/0.5 ML VIAL IM (15:02)
== END ==
PROVIDERS: PCP Family Medicine; Visit Provider Internal Medicine
DX: Z23 Encounter for immunization (principal)
CPT/HCPCS: 0011A; 91301

== ENCOUNTER → 2020-04-01 14:52 | Outpatient (CLI) | payer BC, SELFPAY ==
[2019-01-11 03:59] VITALS: BMI 30.4
[2020-04-01] MEDS: COVID-19 VACC #2, MRNA(MOD) 100 MCG/0.5 ML VIAL IM (14:59)
== END ==
PROVIDERS: PCP Family Medicine; Visit Provider Internal Medicine
DX: Z23 Encounter for immunization (principal)
CPT/HCPCS: 0012A; 91301

== ENCOUNTER → 2020-09-03 10:29 | Outpatient (CLI) | payer BC, SELFPAY ==
[2019-01-11 03:59] VITALS: BMI 30.4
[2020-09-03 11:09] LABS: COVID19 -Nasal RAPID Negative (Negative)
== END ==
PROVIDERS: PCP Family Medicine; Visit Provider Physician Assistant
DX: J02.9 Acute pharyngitis, unspecified (principal); R53.83 Other fatigue; Z20.822 Contact with and (suspected) exposure to COVID-19
CPT/HCPCS: 87070; 87635